=== PATIENT | female | born 1985 | race American Indian/Alaskan Native ===

== ENCOUNTER 2016-10-23 00:31 | Emergency (ER) | payer MEDICAID ==
[2016-10-23 00:42] VITALS: BP 141/97
[2016-10-23 01:26] LABS: Basophils % (Auto) 0.7 % (0.0-1.8); Eosinophils % (Auto) 1.8 % (0.0-4.3); Mean Corpuscular HGB Conc 30 % (30-34); Platelet Count 331 K/mm3 (140-440); White Blood Count 10.6 K/mm3 (4.5-11.0)
[2016-10-23 01:34] LABS: Hemoglobin 8.8 gm/dl (10.1-14.3)
[2016-10-23 01:35] LABS: Blood Urea Nitrogen 12 mg/dL (7-17); Calcium 8.8 mg/dL (8.4-10.2); Carbon Dioxide 22 mmol/L (22-30); Chloride 103.1 mmol/L (98-107); Glucose 81 mg/dL (65-100); Hematocrit 29.7 % (30.3-42.9); Mean Corpuscular Hemoglobin 20 pg (28-32); Mean Corpuscular Volume 68 fl (79-97); Potassium 3.4 mmol/L (3.6-5.0); Sodium 140 mmol/L (137-145)
[2016-10-23 01:36] LABS: Anion Gap 18 mmol/L
--- NOTE | 2016-10-23 04:28 | Emergency Department Report ---
Chief Complaint: Seizure Stated Complaint: HEADACHE Time Seen by Provider: 10/23/16 04:28 - HPI History of Present Illness: Patient here with family member reported that patient had 3 seizures today. Family member reported that they try to pick patient up and she hit her head, family member said that seizure did not last very long. Reports the patient hit the back of her head. Patient reporting pain to the back of her head. Denies any nausea vomiting. Denies bowel or bladder incontinence. Patient takes Dilantin and has missed several days of Dilantin. - ROS Review of Systems: all Systems are negative unless stated in HPI above. - Exam Vital Signs: Vital Signs 10/23/16 00:38 Temperature 98.2 F Pulse Rate 72 Respiratory 18 Rate Blood Pressure 141/97 O2 Sat by Pulse 100 Oximetry Physical Exam: General: This is a 31-year-old female well-nourished well-developed in no acute distress and nontoxic in appearance. CV: S1, S2. Regular rate and rhythm. Head: Normocephalic, atraumatic. Occipital scalp tenderness Mini-Neuro: GCS of 15, patient alert and oriented 3. No pronator drift and normal gait. Speech is clear and fluid and no facial drooping.. MSE screening note: Focused history and physical exam performed. Due to findings the following was ordered:see [facility] ED Medical Decision Making - Lab Data Result diagrams: 10/23/16 01:01 10/23/16 01:01 - Medical Decision Making Medical decision making: Patient seen by provider in triage area. Appropriate protocol activated and patient to main ED to be seen by physician. ED Disposition for MSE Condition: Stable
[2016-10-23] MEDS ORDERED: TYLENOL PO ONE (05:53)
--- NOTE | 2016-10-23 21:44 | ED Elopement Review ---
ED Pt Elopement review - Results review Lab results: Laboratory Tests 10/23/16 10/23/16 10/23/16 01:01 01:01 01:01 WBC 10.6 RBC 4.40 Hgb 8.8 L Hct 29.7 L MCV 68 L MCH 20 L MCHC 30 RDW 18.0 H Plt Count 331 Lymph % (Auto) 14.0 Leslie % (Auto) 4.2 Eos % (Auto) 1.8 Baso % (Auto) 0.7 Lymph # 1.5 Leslie # 0.4 Eos # 0.2 Baso # 0.1 Seg Neutrophils % 79.3 H Seg Neutrophils # 8.4 H Sodium 140 Potassium 3.4 L Chloride 103.1 Carbon Dioxide 22 Anion Gap 18 BUN 12 Creatinine 0.6 L Estimated GFR > 60 BUN/Creatinine Ratio 20.00 Glucose 81 Calcium 8.8 Phenytoin 1.4 L - Call Back decision Pt Call Back Decision: No action required
== END 2016-10-23 06:05 | disposition left against medical advice (07) ==
LOC: ED 00:31
DX: R56.9 Unspecified convulsions (principal); R51 Headache; Z53.21 Procedure and treatment not carried out due to patient leaving prior to being seen by health care provider
CPT/HCPCS: 36415; 80048; 80185; 85025